=== PATIENT | female | born 1950 | race American Indian/Alaskan Native ===

== ENCOUNTER 2021-12-27 19:57 | Emergency (ER) | payer MEDICARE ==
[2021-12-27] MEDS ORDERED: SODIUM CHLORIDE 0.9% 1000 ML 1,000 ML IV ONE (20:42)
[2021-12-27] MEDS ORDERED: MORPHINE 4 MG/1 ML INJ IV ONE (20:42)
[2021-12-27] MEDS ORDERED: ONDANSETRON 4 MG/2 ML INJ IV ONE (20:42)
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
[2021-12-27 21:22] LABS: Basophils # (Auto) 0.1 K/mm3 (0.0-0.1); Eosinophils # (Auto) 0.4 K/mm3 (0.0-0.4); Eosinophils % (Auto) 5.5 % (0.0-4.3); Hemoglobin 9.8 gm/dl (10.1-14.3); Lymphocytes # (Auto) 1.5 K/mm3 (1.2-5.4); Lymphocytes % (Auto) 21.5 % (13.4-35.0); Mean Corpuscular HGB Conc 33 % (30-34); Mean Corpuscular Volume 92 fl (79-97); Monocytes # (Auto) 0.9 K/mm3 (0.0-0.8); Monocytes % (Auto) 12.5 % (0.0-7.3); Platelet Count 268 K/mm3 (140-440); Red Blood Count 3.28 M/mm3 (3.65-5.03); Red Cell Distribution Width 14.4 % (13.2-15.2)
[2021-12-27 21:38] LABS: BUN/Creatinine Ratio 15; Blood Urea Nitrogen 34 mg/dL (7-17); Calcium 8.6 mg/dL (8.4-10.2); Hemolysis Index 15
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
[2021-12-28] MEDS ORDERED: TETANUS,DIPH,PERTUSS(ACELL) VACCINE 0.5 ML SYRINGE IM ONE (00:59)
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
[2021-12-28 05:09] VITALS: BP 126/66
--- NOTE | 2021-12-30 09:57 | Electrocardiograph Report ---
[facility] Test Date: 2021-12-27 Test Time: 20:39:08 Pat Name: JOHNNY VILLARREAL Department: Room: Gender: F [place] Edger: [id number] : 1950 Requested By: FRANCISCO TOMLIN Order Number: [id number] Reading MD: Kodak Hutchison Measurements Intervals Rose Rate: 76 P: 25 VA: 194 QRS: -2 QRSD: 101 T: 61 QT: 433 QTc: 485 Interpretive Statements Sinus rhythm Ventricular premature complex Aberrant conduction of SV complex(es) No previous ECG available for comparison Electronically Signed On 12-30-2021 9:57:04 EDT by Kodak Hutchison
== END 2021-12-28 05:09 | disposition home or self-care (01) ==
LOC: ED 19:57
DX: S52.202A Unspecified fracture of shaft of left ulna, initial encounter for closed fracture (principal); R07.9 Chest pain, unspecified; Z91.040 Latex allergy status; I10 Essential (primary) hypertension; J45.909 Unspecified asthma, uncomplicated; X58.XXXA Exposure to other specified factors, initial encounter; Y93.89 Activity, other specified; Y92.89 Other specified places as the place of occurrence of the external cause; Y99.8 Other external cause status
CPT/HCPCS: 29125; 36415; 71250; 73090; 73110; 73562; 80048; 84484; 85025; 90471; 90715; 93005; 96361; 96374; 96375; 99285; J2270; J2405; J7030